=== PATIENT | female | born 2000 | race Caucasian/White ===

== ENCOUNTER 2019-12-19 12:05 | Emergency (ER) | payer BC, SELFPAY ==
[2019-12-19 12:11] VITALS: BP 124/89; PULSE 80; RESP 16; TEMP 36.7; O2SAT 100
--- NOTE | 2019-12-19 12:33 | CMSP_ITS ---
- If Service Date Differs Date of service: 12/19/19 Time of Service: 12:33 Care Management Safety Plan Chief Complaint: Lucy is a 19 year old female who presents in the emergency department for a psych eval. CM will respond to ED to assess patient after patient has been medically cleared and assessed by screener. If screener deems patient meets criteria for psychiatric stabilization CM will facilitate interdepartmental huddle with [facility] screener for safety planning considerations and meet with patient to review [facility] policy and safety plan, establish individual wishes for treatment and maintain patient rights. In the interim; please note safety plan below to guide patient care while awaiting further assessment in the ED. SAFETY PLAN: 1. Will remain on suicide precautions and in paper clothes. 2. Will remain in room under direct supervision of one-on-one staff at all times provided by [employer], LUAN, [employer] cloth winder machine operator. 3. May have paper cups, plates, finger foods as well as a cardboard spoon with which to eat meals. 4. Follow [facility] Management of the Admitted Behavioral Health Patient policy. 5. Comfort bath system only. 6. No personal belongings 7. Visitors: No visitors at this time. 8. Activities: Soft tip markers, paper, books, television if available, and other activities at nursing discretion. 8. No telephone privileges at this time. 9. Due to VOLUNTARY status, if patient wishes to leave [facility], the [facility] printed circuit board reworker must be contacted to evaluate patient prior to patient exiting the building. If deemed appropriate for inpatient psychiatric care, safety plan will be established with patient, and care team, to adhere to patient goals, identify restrictions based on behavioral status, address nutrition, and determine allowed personal belongings, tools for hygiene and personal care. As well plan will determine level of activity including ambulation, level of supervision, visitors, and determine privileges based on level of acuity, behaviors and level of engagement by patient.
--- NOTE | 2019-12-19 12:38 | W.ED.GENAD ---
Discharge Plan Disposition Patient Disposition: HOME Condition: Stable Discharge Details Clinical Impression: Depression Primary Care Provider: Unknown,Unknown ED Provider: Hank Kasper Home Meds and New Rx's Prescriptions: Continued norgestimate-ethinyl estradiol [Tri-Sprintec (28)] 0.18/0.215/0.25 mg-35 mcg (28) tablet 1 tab PO DAILY RF: 0 Discharge Instructions Instructions: Depression (ED) Additional Instructions: follow up with [facility] if you feel more ill or have thoughts of self harm and are unable to get a hold of [facility] return to the emergency department Medical Decision Making 19 yo female with no known chronic medical problems who is a student at [employer] comes in with feeling depressed. She states her mother told her they were going to get food and brought her here instead. She apparently has been more sad recently and has had increased stress revolving around covid and also is the head of two organizations at school. She denies hurting her self and has no specific plans to hurt herself and states she can't hurt herself because too many people care about me. She is sad on exam with no focal motor or sensation deficits and clear speech, denies alcohol use and uses marijuana occassionally. She has no findings on exam or history to suggest underlying medical problems such as endocrine disorders or infectious etiologies. Medically cleared to speak with mental health patient seen by mental health and she does not meet criteria for EE and is going to set her up with outpatient services which patient is agreeable to. She has no si here and feel she is safe for d/c Differential Diagnosis Differential Diagnosis: depression, overworked, stress reaction HPI General Mode of arrival: ambulatory. Date/Time Provider Initiated Documentation: 12/19/19 12:06. Limitations to Documentation: no limitations. Information obtained by: patient and family (mother). History of Present Illness 19 year old F presents to the emergency department with the chief complaint of depressed, described as moderate, and it has been constant. No relieving factors improve symptom(s), No exacerbating factors reported . Related Data Home Medications Medication Instructions Recorded Confirmed norgestimate-ethinyl estradiol 1 tab PO DAILY 12/19/19 12/19/19 [Tri-Sprintec (28)] Allergies Allergy/AdvReac Type Severity Reaction Status Date / Time No Known Allergies Allergy Unverified 12/19/19 12:16 General Stated Complaint: PsychEval GURPREET: 2 Review of Systems All systems reviewed & are unremarkable except as noted in HPI and below Constitutional Constitutional: Denies chills, Denies fever(s) and Denies weakness Cardiovascular Cardiovascular: Denies chest pain and Denies dyspnea Respiratory Respiratory: Denies cough and Denies dyspnea Gastrointestinal Gastrointestinal: Denies abdominal pain, Denies nausea and Denies vomiting Genitourinary Genitourinary: Denies dysuria Musculoskeletal Musculoskeletal: Denies joint swelling Integumentary/Breasts Skin/Breast: Denies rash Neurologic Neurologic: Denies weakness PFSH Social History Smoking/Tobacco Use Status: Never Smoking risk assessment performed?: Yes Alcohol Intake: current Alcohol Intake frequency: a few times a month Drug use: Occasionally Substance use type: marijuana Do you feel safe at home: Yes Do you feel safe in your relationship?: Yes Exam Const General: no acute distress Orientation: alert HENMT Head: normal to inspection Ears: external ears normal General nose exam: external nose normal Mouth: moist mucous membranes Eyes General: appearance normal, both eyes and all related structures Neck Neck: normal visual inspection Resp Effort & Inspection: normal respiratory effort and able to speak in complete sentences Cardio Rate: regular rate Skin General skin exam: no rashes or lesions noted Neuro General: patient alert and patient oriented x3 Extrem General: normal to inspection Psych Affect: sad Course Vital Signs Vital signs: Vital Signs Temperature 36.7 C 12/19/19 12:11 Pulse 80 12/19/19 12:11 Respiratory Rate 16 12/19/19 12:11 Blood Pressure 124/89 12/19/19 12:11 Pulse Oximetry 100 12/19/19 12:11 Temperature 36.7 C 12/19/19 12:11 Temperature Source Skin 12/19/19 12:11 Pulse 80 12/19/19 12:11 Respiratory Rate 16 12/19/19 12:11 Respiratory Effort 12/19/19 12:16 Blood Pressure 124/89 12/19/19 12:11 Blood Pressure Position Sitting 12/19/19 12:11 Pulse Oximetry 100 12/19/19 12:11 Oxygen Delivery Method Room Air 12/19/19 12:11 Oxygen Flow Rate 0 12/19/19 12:11 Pain Level 0 12/19/19 12:11
--- NOTE | 2019-12-19 13:12 | NUR.NOTE ---
Nursing Note: pt's cell phone secured with her belongings- interim safety plan does not allow for cell phone. CM aware. Pt's mother called, stating the pt was texting her that you aren't feeding her or giving her anything to drink- pt was ordered food and drink upon entrance to ED room. Tray has been delivered. Pt appears emotionally ramped up by these interactions.
[2019-12-19 15:34] VITALS: BP 120/81; PULSE 90; RESP 20; TEMP 37.2; O2SAT 99
== END 2019-12-19 15:39 | disposition home or self-care (01) ==
PROVIDERS: Emergency Provider Emergency Medicine
DX: F32.9 Major depressive disorder, single episode, unspecified (principal)
CPT/HCPCS: 99283

== ENCOUNTER 2021-07-02 18:35 | Emergency (ER) | payer BC, SELFPAY ==
[2021-07-02 18:47] VITALS: BP 121/63; PULSE 78; RESP 14; TEMP 36.3; O2SAT 97
--- NOTE | 2021-07-02 19:00 | DI.RAD_ITS ---
Exam(s) XR HAND RT COMPLETE EXAM: XR HAND RT COMPLETE CLINICAL HISTORY: Laceration Glass, R/O FB. TECHNIQUE: 2D digital imaging was performed. COMPARISON: No exams were available for comparison FINDINGS: 3 views There is no evidence of fracture or dislocation no radiopaque foreign body. Bone density is normal. No osseous lesions nor erosions. IMPRESSION: No significant osseous findings. No radiopaque foreign body DATA REPOSITORY: RADIATION DOSE DELIVERED:
--- NOTE | 2021-07-02 20:09 | DI.VRAD_ITS ---
PROCEDURE INFORMATION: Exam: XR Right Hand Exam date and time: 07/02/2021 7:38 PM Age: 21 years old Clinical indication: Injury or trauma; Hand; Right; Patient HX: Laceration glass, R/O fb TECHNIQUE: Imaging protocol: XR Right hand. Views: 3 or more views. COMPARISON: No relevant prior studies available. FINDINGS: Bones/joints: Four views of the right hand reveal no acute fracture or dislocation. There appears to be focal soft tissue swelling with a soft tissue defect on the palmar surface of the hand overlying the metacarpophalangeal joints, seen on the lateral view with fingers extended. Soft tissues: No radiopaque foreign body is demonstrated. IMPRESSION: No acute fracture or foreign body identified. Dictated and Authenticated by: Nilesh Orozco MD. Ordering:OH Garcia MD
--- NOTE | 2021-07-02 20:20 | ED.GENADUL_ITS ---
Discharge Plan Disposition Patient Disposition: HOME Condition: Stable Discharge Details Clinical Impression: Laceration of hand, right Primary Care Provider: Unknown,Unknown ED Provider: Radha South Home Meds and New Rx's Prescriptions: No Action escitalopram oxalate [Lexapro] 10 mg Tablet 10 mg PO DAILY Discharge Instructions Instructions: Laceration (ED) Additional Instructions: Have sutures removed in 7 to 10 days. No soaking. May wash under running soap and water after 12 to 24 hours. Watch for signs of infection including increased redness, red streaks swelling or drainage. About laceration to air dry 1-2 hours a day. Please take Tylenol or Ibuprofen with food every 4-6 hours as needed for pain and swelling. Follow up with primary care provider in 3-5 days. Return to ED sooner if any worsening or concerns. Increase oral fluids. Discharge Data Discharge Date/Time-TO BE ENTERED AT DEPARTURE: 07/02/21 22:18 Medical Decision Making Imaging ordered to rule out foreign body results are noted below. Patient was given Tdap. Wound care provided with chlorhexidine, sterile normal saline. Laceration was incised with 1% lidocaine anesthesia was achieved patient tolerated well. Laceration was repaired with 4-0 Ethilon sutures #2 wound was well approximated. Discussed home care with patient who verbalized understanding. Discussed Strict return discharge instructions. Imaging Data Radiologic Study: Imaging: X-Ray Radiologist's impression: Imaging protocol: XR Right hand. Views: 3 or more views. COMPARISON: No relevant prior studies available. FINDINGS: Bones/joints: Four views of the right hand reveal no acute fracture or dislocation. There appears to be focal soft tissue swelling with a soft tissue defect on the palmar surface of the hand overlying the metacarpophalangeal joints, seen on the lateral view with fingers extended. Soft tissues: No radiopaque foreign body is demonstrated. IMPRESSION: No acute fracture or foreign body identified. HPI General Mode of arrival: ambulatory . Date/Time Provider Initiated Documentation: 07/02/21 18:36 . Limitations to Documentation: no limitations . Information obtained by: patient and RN notes reviewed . HPI Narrative: 21-year-old female presents to the ER with a right palm laceration which occurred prior to arrival. Patient reports [place] tubing [place] the river which picked up a rena jar which happened to be broken in her right palm. She has approximately 1.5 cm laceration noted to the palmar aspect just below the base of her index finger. Bleeding is controlled. She has full flexion extension of her digit. She does not know when her last tetanus vaccination was. No other injuries or complaints at this time. Related Data Home Medications Medication Instructions Recorded Confirmed escitalopram oxalate 10 mg tablet 10 mg PO DAILY 07/02/21 07/02/21 (Lexapro) Allergies Allergy/AdvReac Type Severity Reaction Status Date / Time No Known Allergies Allergy Unverified 07/02/21 18:53 General Stated Complaint: Laceration GURPREET: 4 Review of Systems Integumentary/Breasts Skin/Breast: Reports as per HPI and Reports wounds PFSH All Active Problems (Updated 07/02/21 @ 22:10 by Radha South) Laceration of hand, right (Acute) Social History Smoking/Tobacco Use Status: Current-Occasional Tobacco Type: e-cigarettes Smoking risk assessment performed?: Yes Alcohol Intake: current Alcohol Intake frequency: a few times a month Alcohol type: beer Drug use: Occasionally Substance use type: marijuana Do you feel safe at home: Yes Do you feel safe in your relationship?: Yes Exam Extrem Right upper extremity: hand Details: normal capillary refill, neuromotor exam normal, neurosensory exam normal, tendon exam normal and laceration Hand/finger images: 1. Approximately 1.5 cm laceration with flap, bleeding controlled full range of motion full extension and flexion noted. Course Vital Signs Vital signs: Vital Signs Temperature 36.3 C L 07/02/21 18:47 Pulse 78 07/02/21 18:47 Respiratory Rate 14 07/02/21 18:47 Blood Pressure 121/63 07/02/21 18:47 Pulse Oximetry 97 07/02/21 18:47 Temperature 36.3 C L 07/02/21 18:47 Temperature Source Skin 07/02/21 18:47 Pulse 78 07/02/21 18:47 Respiratory Rate 14 07/02/21 18:47 Respiratory Effort 07/02/21 18:56 Blood Pressure 121/63 07/02/21 18:47 Blood Pressure Position Sitting 07/02/21 18:47 Pulse Oximetry 97 07/02/21 18:47 Oxygen Delivery Method Room Air 07/02/21 18:47 Oxygen Flow Rate 0 07/02/21 18:47 Pain Level 0 07/02/21 18:58 Lab/Test Results Lab/Test Results: POC- Test(urine) Negative Procedures Laceration Laceration 1: Site: hand Side (If applicable): right Size (cm): 1.5 Description: linear and flap Depth: simple, single layer Local Anesthetic: Lidocaine 1% Amount of anesthesia used (mL): 2 Pre-repair: wound explored, irrigated extensively and deep structures intact Skin layer closed with: nylon Number of sutures: 2 Technique: simple, interrupted PAWSS Have you Been Recently Intoxicated or Drunk Within the Last 30 days?: Yes Have you Ever Experienced Previous Episodes of Alcohol Withdrawal?: No Have you ever Experienced Withdrawal Seizures?: No Have you ever Experienced Delirium Tremens(DT)s?: No Have you ever undergone Alcohol Rehabilitation Treatment (i.e, inpt ot outpatien t treatment programs)?: No Have you ever Experienced Blackouts?: No Have you ever Combined Alcohol with other Downers within the last 90 days?: No Have you ever Combined Alcohol with any other Substance of Abuse during the last 90 days?: No Positive Blood Alcohol level on Presentation? [PCS.BAL]: Yes Evidence of Increased Autonomic Activity (i.e. HR>120, tremor, sweating, agita tion, nausea)?: No Result: 2
== END 2021-07-02 22:18 | disposition home or self-care (01) ==
PROVIDERS: Emergency Provider Registered Nurse Emergency
DX: S61.411A Laceration without foreign body of right hand, initial encounter (principal); W25.XXXA Contact with sharp glass, initial encounter
CPT/HCPCS: 12001; 81025; 90471; 99284; 73130; 99283